=== PATIENT | male | born 1975 | race Caucasian/White ===

== ENCOUNTER 2017-06-13 01:45 | Emergency (ER) | payer BC ==
--- NOTE | 2017-06-13 02:11 | EDM.PDOC ---
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 UP TO DATE WITH TD. DENIES ANY OTHER INJURY Onset: Today Duration: Hour(s): Location: Reports: Lower Extremity, Right Severity: Mild Improves with: Reports: None Worsens with: Reports: None Associated Symptoms: Reports: No Other Symptoms ED ROS GENERAL - Review of Systems Review Of Systems: ROS reveals no pertinent complaints other than HPI. Constitutional: Reports: No Symptoms HEENT: Reports: No Symptoms Respiratory: Reports: No Symptoms Cardiovascular: Reports: No Symptoms Endocrine: Reports: No Symptoms GI/Abdominal: Reports: No Symptoms : Reports: No Symptoms Musculoskeletal: Reports: No Symptoms Skin: Reports: Wound (TO RIGHT LOWER LEG) Neurological: Reports: No Symptoms Psychiatric: Reports: No Symptoms Hematologic/Lymphatic: Reports: No Symptoms Immunologic: Reports: No Symptoms ED EXAM, SKIN/RASH Exam: See Below Exam Limited By: No Limitations General Appearance: Alert, WD/WN, No Apparent Distress Throat/Mouth: Normal Inspection, Normal Oropharynx, No Airway Compromise Respiratory/Chest: No Respiratory Distress Extremities: Other (RIGHT ANTEROLATERAL 3 CM LINEAR LACERATION) Neurological: Alert, Oriented, Normal Cognition Psychiatric: Normal Affect, Normal Mood Skin: Warm, Dry, Intact, Normal Color, No Rash Location, Skin: Lower Extremity, Right ED SKIN PROCEDURES - Laceration/Wound Repair Right Lower Anterior Lateral Leg Lac/Wound length In cm: 3 Appearance: Superficial Distal NVT: Neuro & Vascular Intact, No Tendon Injury Anesthetic Type: Local Local Anesthesia - Lidocaine (Xylocaine): 1% Plain Local Anesthetic Volume: 2cc Skin Prep: Providone-Iodine (Betadine) Exploration/Debridement/Repair: Wound Explored Closed with: Siddharth Course - Re-Assessments/Exams Free Text/Narrative Re-Assessment/Exam: 06/13/17 02:10 PT AFEBRILE, NONTOXIC APPEARING, VSS, TOLERATED PROCEDURE WELL Departure - Departure Time of Disposition: 02:12 Disposition: Home, Self-Care 01 Condition: Good Clinical Impression: Laceration - Discharge Information Instructions: Stitches, Siddharth, or Adhesive Wound Closure, [id number] Forms: ED Department Discharge Additional Instructions: F/U WITH PCP IN 10 DAYS FOR STAPLE REMOVAL - Assessment/Plan Assessment:: LACERATION REPAIR TO RIGHT LOWER LEG Plan: F/U WITH PCP IN 10 DAYS FOR STAPLE REMOVAL
[2017-06-13 02:13] VITALS: BP 122/87
== END 2017-06-13 02:20 | disposition home or self-care (01) ==
LOC: KA.ED 01:45
DX: S81.811A Laceration without foreign body, right lower leg, initial encounter (principal); W25.XXXA Contact with sharp glass, initial encounter
CPT/HCPCS: 12002; 99283